=== PATIENT | female | born 1975 | race Caucasian/White ===

== ENCOUNTER 2017-12-27 21:47 | Emergency (ER) | payer BC, OTHER ==
--- NOTE | 2017-12-27 22:42 | RAD ---
RIGHT FOOT THREE VIEW 12/27/17 HISTORY: Injury. COMPARISON: None. FINDINGS: No acute displaced fracture or malalignment. Bipartite os peroneum is present. Lisfranc interval appears to be maintained. IMPRESSION: No acute fracture or malalignment. POS: [facility]
== END 2017-12-27 22:53 | disposition home or self-care (01) ==
LOC: SCSER 21:47
DX: S90.31XA Contusion of right foot, initial encounter (principal); F41.9 Anxiety disorder, unspecified; F32.9 Major depressive disorder, single episode, unspecified; Z79.899 Other long term (current) drug therapy; X58.XXXA Exposure to other specified factors, initial encounter